=== PATIENT | male | born 1985 | race Two or more races ===

== ENCOUNTER → 2024-12-31 | Outpatient (BNVA) | payer BC, SELFPAY | END | disposition home or self-care (01) | PROVIDERS: PCP Physician Assistant; Referring Provider Physician Assistant; Visit Provider Student in an Organized Health Care Education/Training Program | DX: N52.9 Male erectile dysfunction, unspecified (principal); N44.8 Other noninflammatory disorders of the testis | CPT/HCPCS: 99202; G0463 ==

== ENCOUNTER → 2025-03-03 | Outpatient (CLI) | payer OTHER, SELFPAY ==
--- NOTE | 2025-03-03 11:30 | XR_ITS ---
Examination: Testicular sonography complete TECHNIQUE: Grayscale sonographic images testes, assessment arterial inflow venous outflow Doppler spectral analysis carful analysis INDICATIONS: Left testicular swelling beginning 3 years ago FINDINGS: Right thyroid 4.2 cm epididymis 1.1 cm Appendix testis 9 mm Arterial flow testicle. No testicular mass Left testis 3.9 cm epididymis 1.5 cm Appendix testis, 8mm Arterial flow testicle No testicular mass Mild right moderate left hydrocele IMPRESSION: No testicular torsion or testicular mass Mild right moderate left hydrocele
== END | disposition home or self-care (01) ==
PROVIDERS: PCP Physician Assistant; Referring Provider Urology; Visit Provider Urology
DX: N43.3 Hydrocele, unspecified (principal)
CPT/HCPCS: 76870

== ENCOUNTER → 2025-04-03 | Outpatient (BNVA) | payer OTHER, SELFPAY | END | disposition home or self-care (01) | PROVIDERS: PCP Physician Assistant; Referring Provider Physician Assistant; Visit Provider Urology | DX: N52.9 Male erectile dysfunction, unspecified (principal) | CPT/HCPCS: 81003; 99212; G0463 ==